=== PATIENT | female | born 1945 | race Caucasian/White ===

== ENCOUNTER → 2018-05-09 | Outpatient (CLI) | payer MEDICARE ==
--- NOTE | 2018-05-09 12:18 | Diagnostic Imaging Report ---
PROCEDURE: X-RAY CHEST, TWO VIEWS COMPARISON: None. INDICATIONS: RULE OUT PLEURAL EFFUSION FINDINGS: LUNGS: Lungs are hyperinflated. No mass or infiltrate. The pulmonary veins are prominent. No interstitial thickening. PLEURA: No effusions or pneumothorax. HEART \T\ MEDIASTINUM: Cardiomegaly and cardiac bypass changes. No hilar lymphadenopathy. BONES \T\ SOFT TISSUES: Median sternotomy wires are intact. Bones are diffusely demineralized. No focal osseous lesions. CONCLUSION: No pleural effusion. Cardiomegaly and pulmonary vascular prominence suggestive of venous hypertension. Dictated by: Yvon Wright M.D. on 05/09/2018 at 12:21 Electronically approved by: Yvon Wright M.D. on 05/09/2018 at 12:21
== END ==
LOC: RAD 10:36
PROVIDERS: ATTEND Family Medicine
DX: I50.9 Heart failure, unspecified (principal)
CPT/HCPCS: 71046

== ENCOUNTER → 2018-12-20 | Outpatient (CLI) | payer MEDICARE ==
--- NOTE | 2018-12-20 15:20 | Diagnostic Imaging Report ---
EXAMINATION: PA and lateral views of the chest. COMPARISON: None CLINICAL HISTORY: COPD DISCUSSION: Lines/tubes: Sternotomy wires. Lungs: Central venous congestion. No edema. No pneumonia. Pleura: There is no pleural effusion or pneumothorax. Heart and mediastinum: Cardiomegaly. Bones and soft tissues: No acute bony abnormalities. IMPRESSION: Cardiomegaly with central venous congestion Signed by: Dr. Suman Alvarez M.D. on 12/20/2018 3:17 PM
== END ==
LOC: RAD 14:38
PROVIDERS: ATTEND Family Medicine
DX: J44.9 Chronic obstructive pulmonary disease, unspecified (principal)
CPT/HCPCS: 71046

== ENCOUNTER → 2019-03-23 | Outpatient (CLI) | payer MEDICARE ==
--- NOTE | 2019-03-23 15:38 | Diagnostic Imaging Report ---
EXAMINATION: CHEST 2 VIEWS INDICATION: Dyspnea. COMPARISON: Chest radiograph 12/20/2018. FINDINGS: TUBES and LINES: None. LUNGS: Lungs are moderately inflated. There are bilateral perihilar and interstitial opacities. Mild patchy opacities in the mid and lower lung zones. No evidence of lobar pneumonia. PLEURA: No pleural effusion or pneumothorax. HEART AND MEDIASTINUM: The cardiomediastinal silhouette is mildly enlarged. Status post CABG. Atherosclerotic calcification of the aortic arch. BONES AND SOFT TISSUES: No acute osseous abnormality. Status post median sternotomy. UPPER ABDOMEN: No free air under the diaphragm. IMPRESSION: Mild cardiomegaly with pulmonary interstitial edema. Mild patchy opacities in the mid and lower lung zones may represent alveolar edema, although early pneumonia is possible. Follow-up chest radiograph is suggested. Signed by: Dr. Stephan Navarro MD on 03/23/2019 3:35 PM
== END ==
LOC: RAD 14:38
PROVIDERS: ATTEND Family Medicine
DX: R06.00 Dyspnea, unspecified (principal)
CPT/HCPCS: 71046